=== PATIENT | female | born 1995 | race Caucasian/White ===

== ENCOUNTER 2018-10-19 12:30 | Emergency (ER) | payer MEDICAID ==
[~2018-10-19] VITALS: Ht 152.4 cm; Wt 49.1 kg
[2018-10-19 12:33] VITALS: BP 108/67; PULSE 84; RESP 18; Ht 152.4 cm; Wt 49.1 kg
--- NOTE | 2018-10-19 12:36 | EN ---
Date/Time of Note Date/Time of Note DATE: 10/19/18 TIME: 12:34 ER Progress Note 23-year-old female G1 para 0 approximately 7 months referred by primary doctor for bilateral lower extremity pain and evaluation for Doppler to rule out DVT. Patient describes pain in bilateral thighs with walking. Patient denies shortness of breath, hemoptysis, syncope, swelling. Patient ambulatory and [id number]. Patient has additional complaint of mild lower abdominal suprapubic pain. Patient may return to L&D after medical screening for DVT. Vital signs normal without tachycardia. ISABELLA PATEL MD Oct 19, 2018 12:36
--- NOTE | 2018-10-19 17:19 | ERD ---
ER Documentation Chief Complaint Chief Complaint sent by clin here to r/o DVT on bilateral LE. c/o pain bila LE. 7.5 mos pre HPI History of Present Illness: 23-year-old female from [facility] 34 weeks referred by primary doctor ([facility]) for bilateral lower extremity pain and evaluation for Doppler to rule out DVT. Patient describes pain in bilateral thighs with walking. Patient denies shortness of breath, hemoptysis, syncope, swelling. Patient ambulatory and [id number]-fjbtverkj. Patient initially went through RME and had complained of abdominal pain, upon further clarification patient reports that pain is not present at this time. At home pharmacological/nonpharmacological treatment for symptoms: Denies Denies social concerns; Denies recent foreign travel ROS All systems reviewed and are negative except as per history of present illness. Allergies Allergies: Coded Allergies: No Known Allergy (Unverified , 10/19/18) PMhx/Soc Medical and Surgical Hx: pt denies Medical Hx, pt denies Surgical Hx Hx Alcohol Use: No Hx Substance Use: No Hx Tobacco Use: No Smoking Status: Never smoker Physical Exam Vitals Vital Signs Date Temp Pulse Resp B/P (MAP) Pulse Ox O2 O2 Flow FiO2 Time Delivery Rate 10/19/18 97.8 84 18 108/67 99 12:33 (81) Physical Exam Const: No acute distress, afebrile Head: Atraumatic Eyes: Normal Conjunctiva ENT: Normal External Ears, Nose and Mouth. Neck: Full range of motion. No meningismus. Resp: Clear to auscultation bilaterally Cardio: Regular rate and rhythm, no murmurs Abd: Soft, non tender, non distended. Bowel sounds present. Patient gravid. No guarding, no masses, no rigidity Skin: No petechiae or rashes Back: No midline or flank tenderness Ext: No cyanosis, or edema Neur: Awake and alert x3, speaking in clear sentences, no focal deficits or facial asymmetry Psych: Normal Mood and Affect Results 24 hrs Laboratory Tests Test 10/19/18 13:15 Urine Color YELLOW Urine Clarity SLIGHTLY CLOUDY Urine pH 7.0 Urine Specific [place] 1.012 Urine Ketones TRACE mg/dL Urine Nitrite NEGATIVE mg/dL Urine Bilirubin NEGATIVE mg/dL Urine Urobilinogen NEGATIVE mg/dL Urine Leukocyte Esterase NEGATIVE Lilibeth/ul Urine Microscopic RBC 0 /HPF Urine Microscopic WBC 3 /HPF Urine Squamous Epithelial Cells MODERATE /HPF Urine Bacteria FEW /HPF Urine Hemoglobin NEGATIVE mg/dL Urine Glucose NEGATIVE mg/dL Urine Total Protein NEGATIVE mg/dl Procedures/MDM Call is for this girl ED COURSE: ED course includes a thorough examination and history. The patient was stable throughout ED course. I kept the patient and/or family informed of laboratory and diagnostic imaging results throughout the ED course. LABS: Urinalysis is with trace ketones, few bacteria, 3 WBCs; findings are consistent with urinary tract infection MEDICATIONS GIVEN IN ER: DIAGNOSTIC IMAGING: Read by radiologist. Bilateral lower extremity venous: IMPRESSION: No sonographic evidence for deep venous thrombosis. .Jamal Tsai MD, MD Date Time Electronically viewed and signed by .Jamal Tsai MD, on 10/19/2018 14:30 PROCEDURES: None. MEDICAL DECISION MAKING: Low suspicion for life-threatening medical emergency. Otherwise healthy patient presenting with constellation of symptoms likely representing leg pain related to as characterized by history, physical exam findings. Patient reassessment @ 1435: Results discussed. Patient given the option to go to labor and delivery for further evaluation. Patient hemodynamically stable. No respiratory distress, otherwise relatively well appearing and nontoxic. Di sposition given. Patient educated on diagnoses, prescriptions, follow-up care, return precautions. Strict return precautions given for worsening condition; questions answered discharge. Patient verbalizes understanding of discharge instructions. PRESCRIPTIONS FOR HOME: Acetaminophen DISPOSITION: DISCHARGE At this time, patient is stable for discharge and outpatient management. I have instructed the patient to follow-up with his/her primary care physician in 1-2 days. I have discussed with the patient the possibility of needing to see a specialist for further workup and imaging studies if symptoms persist. I have instructed the patient to promptly return to the ER for any new or worsening symptoms including increased pain, fever, nausea, vomiting, weakness or LOC. The patient and/or family expressed understanding of and agreement with this plan. All questions were answered. Home care instructions were provided. DISCLAIMER: Inadvertent spelling and grammatical errors are likely due to EHR/dictation s oftware use and do not reflect on the overall quality of patient care. Also, please note that the electronic time recorded on this note does not necessarily reflect the actual time of the patient encounter. Departure Diagnosis: Primary Impression: Bilateral leg pain Ruled Out: DVT (deep venous thrombosis) Condition: Stable Patient Instructions: : Your Third Trimester Changes, Adapting to : Third Trimester Referrals: [facility] YOU HAVE RECEIVED A MEDICAL SCREENING EXAM AND THE RESULTS INDICATE THAT YOU DO NOT HAVE A CONDITION THAT REQUIRES URGENT TREATMENT IN THE EMERGENCY DEPARTMENT. FURTHER EVALUATION AND TREATMENT OF YOUR CONDITION CAN WAIT UNTIL YOU ARE SEEN IN YOUR DOCTORS OFFICE WITHIN THE NEXT 1-2 DAYS. IT IS YOUR RESPONSIBILITY TO MAKE AN APPOINTMENT FOR FOLOW-UP CARE. IF YOU HAVE A PRIMARY DOCTOR --you should call your primary doctor and schedule an appointment IF YOU DO NOT HAVE A PRIMARY DOCTOR YOU CAN CALL OUR PHYSICIAN REFERRAL HOTLINE AT IF YOU CAN NOT AFFORD TO SEE A PHYSICIAN YOU CAN CHOSE FROM THE FOLLOWING [facility] [address] [facility]. [facility] [address] [facility]. [facility] [address] [facility] [facility] [address] [facility] [facility] [address] [facility] [facility]. [facility]. [address] [facility]. [facility] YOU HAVE RECEIVED A MEDICAL SCREENING EXAM AND THE RESULTS INDICATE THAT YOU DO NOT HAVE A CONDITION THAT REQUIRES URGENT TREATMENT IN THE EMERGENCY DEPARTMENT. FURTHER EVALUATION AND TREATMENT OF YOUR CONDITION CAN WAIT UNTIL YOU ARE SEEN IN YOUR DOCTORS OFFICE WITHIN THE NEXT 1-2 DAYS. IT IS YOUR RESPONSIBILITY TO MAKE AN APPOINTMENT FOR FOLOW-UP CARE. IF YOU HAVE A PRIMARY DOCTOR --you should call your primary doctor and schedule and appointment IF YOU DO NOT HAVE A PRIMARY DOCTOR YOU CAN CALL OUR PHYSICIAN REFERRAL HOTLINE AT . IF YOU CAN NOT AFFORD TO SEE A PHYSICIAN YOU CAN CHOSE FROM THE FOLLOWING [facility] INSTITUTIONS: [facility] [address] [place] [address] [facility] [address] [place] [address] L[facility] + [facility] [address] [place] [address] Additional Instructions: Google Translate utilizado para la traduccin de las siguientes lneas, por favor, disculpe los errores. Muchas nasreen por permitirnos participar en vargas cuidado. Vargas camacho y seguridad es nuestra principal prioridad en [facility]. Es importante leer todas las instrucciones de nico y la educacin que se proporcionan en vargas paquete de nico. Llame a vargas mdico de atencin primaria MAANA para nii alissa tr los prximos 2 a 4 garcia y lleve toda la informacin y los medicamentos recetados. Llene las recetas y siga exactamente las instrucciones de la etiqueta. --Acetaminofeno etienne medicamento para el dolor y / o fiebre. [place] azael medicamento segn sea necesario para el dolor leve a moderado. Azael medicamento no causar somnolencia. Azael medicamento es seguro tr el embarazo. Si los sntomas empeoran y vargas proveedor no est disponible, regrese inmediatamente al Departamento de Emergencias. ----- Google Translate used for translation of following lines, please excuse errors. Thank you very much for allowing us to participate in your care. Your health and safety is our top priority at [facility]. It is important to read all discharge instructions and education provided in your discharge packet. Call your primary care doctor TOMORROW for an appointment during the next 2-4 days and bring all the information and medications prescribed. Have prescriptions filled and follow precisely the directions on the label. --Acetaminophen as a medication for pain and/or fever. Take this medication as needed for mild to moderate pain. This medication will not cause drowsiness. This medication is safe during . If the symptoms get worse and your provider is unavailable, return to the Emergency Department immediately. LEONCIO ROGERS NP Oct 19, 2018 17:18
== END 2018-10-19 14:57 | disposition home or self-care (01) ==
LOC: FTE 12:30
DX: M79.604 Pain in right leg (principal); M79.605 Pain in left leg
CPT/HCPCS: 81001; 93970; Z7502; 81003

== ENCOUNTER 2018-11-12 13:19 | Inpatient (IN) | payer MEDICAID ==
[~2018-11-12] VITALS: Ht 149.9 cm; Wt 51.4 kg
[~2018-11-12 13:19] MED LIST: DOCU-144 PO; IBUP-1542 PO; PNV11TAB PO
[2018-11-12 13:41] VITALS: BP 108/68; PULSE 86
[2018-11-12 13:48] VITALS: Ht 149.9 cm; Wt 51.4 kg
[2018-11-12] MEDS ORDERED: OXYTOCIN 30 UNITS/LR 500 ML IV PRN ×3 (16:30→23:30)
[2018-11-12] MEDS ORDERED: CARBOPROST 250 MCG INJ IM PRN ×3 (16:30→23:30)
[2018-11-12] MEDS ORDERED: METHYLERGONOVINE 0.2 MG INJ IM PRN ×3 (16:30→23:30)
[2018-11-12] MEDS ORDERED: MISOPROSTOL 200 MCG TAB PR PRN ×3 (16:30→23:30)
[2018-11-12] MEDS ORDERED: CEFAZOLIN 2 GM/50 ML (PMX) 50 ML IVPB SCH (16:30)
[2018-11-12] MEDS: LACTATED RINGER'S 1,000 ML IV SCH ×2 (16:59→17:54)
[2018-11-12] MEDS ORDERED: AMPICILLIN 2 GM/NS (PMX) 100 ML IVPB ONE (17:20)
--- NOTE | 2018-11-12 17:21 | PREAC ---
Date/Time of Note Date/Time of Note DATE: 11/12/18 TIME: 17:20 Anesthesia Eval and Record Evaluation Time Pre-Procedure Interview DATE: 11/12/18 TIME: 17:20 Age 23 Sex female NPO: 8 hrs Preoperative diagnosis iup at 39 weeks Planned procedure repeat c section Past Medical History Past Medical History: None Surgery & Anesthesia Issues No known issue Meds Anticoagulation: No Beta Chioma within 24 hr: No Reason Beta Chioma not given: Pt. not on B-Chioma Reported Medications [id number] ( 19) 1 Each Tablet, 1 TAB PO DAILY, TAB 11/12/18 Current Medications Lactated Ringer's 1,000 ml @ 125 mls/hr Q8H IV Last administered on 11/12/18at 16:59; Admin Dose 125 MLS/HR; Start 11/12/18 at 16:17 Cefazolin Sodium/ Dextrose 50 ml @ 100 mls/hr ONCE IVPB ; Start 11/12/18 at 16:30 Oxytocin/Lactated Ringer's 500 ml @ 0 mls/hr ONCE PRN IV .VAGINAL BLEEDING; Start 11/12/18 at 16:30 Methylergonovine Maleate (Methergine) 0.2 mg ONCE PRN IM .VAGINAL BLEEDING; Start 11/12/18 at 16:30 Carboprost Tromethamine (Hemabate) 250 mcg ONCE PRN IM .VAGINAL BLEEDING; Start 11/12/18 at 16:30 Misoprostol (Cytotec) 1,000 mcg ONCE PRN PA .VAGINAL BLEEDING; Start 11/12/18 at 16:30 Meds reviewed: Yes Allergies Coded Allergies: No Known Allergy (Unverified , 11/12/18) Allergies Reviewed: Yes Labs/Studies Labs Reviewed: Reviewed by anesthesiologist Result Diagram: 11/12/18 1627 Laboratory Tests 11/12/18 16:27 test: Positive Pre-procedure Exam Last vitals Vital Signs Date Temp Pulse Resp B/P (MAP) Pulse Ox O2 O2 Flow FiO2 Time Delivery Rate 11/12/18 98.8 86 108/68 Room Air 13:41 (81) Airway: Adequate mouth opening, Adequate thyromental dist Mallampati: Mallampati II Teeth: Normal Lung: Normal Heart: Normal ASA Physical Status ASA physical status: 2 Emergency: None Planned Anesthetic Neuraxial: Spinal Planned Pain Management Sub-arachniod narcotics Pre-operative Attestations Prior to commencing anesthesia and surgery, the patient was re-evaluated, there was verification of: *The patient's identity *The results of appropriate recent lab work and preoperative vital signs *The above evaluation not changing prior to induction *Anesthetic plan, risk benefits, alternative and complications discussed with patient/family; questions answered; patient/family understands, accepts and wishes to proceed. NITIN HOFF Nov 12, 2018 17:21
[2018-11-12] MEDS ORDERED: ZOLPIDEM 5 MG TAB PO PRN (19:30)
[2018-11-12] MEDS ORDERED: ONDANSETRON 4 MG INJ IV PRN (19:30)
[2018-11-12] MEDS ORDERED: NALOXONE (0.4 MG/ML) INJ IV PRN (19:30)
[2018-11-12] MEDS ORDERED: KETOROLAC 30 MG INJ IV PRN (19:30)
[2018-11-12] MEDS ORDERED: HYDROmorphONE 0.5 MG/0.5 ML SYG IV PRN ×2 (19:30)
[2018-11-12] MEDS ORDERED: DIPHENHYDRAMINE 50 MG INJ IV PRN (19:30)
[2018-11-12] MEDS ORDERED: OXYTOCIN 30 UNITS/LR 500 ML IV SCH ×2 (19:32→23:02)
--- NOTE | 2018-11-12 19:32 | HP ---
Date/Time of Note Date/Time of Note DATE: 11/12/18 TIME: 19:27 OB - History Hx of Present Chief Complaint: abdominal pain : 3 Para: 2 Care: Good Care Obstetrical Complications: None Medical Complications: None Past Family/Social History * Past Medical, Surgical, Family and Obstetric Histories reviewed from chart. OB Admission Exam Vital Signs Vital Signs Vital Signs Date Temp Pulse Resp B/P (MAP) Pulse Ox O2 O2 Flow FiO2 Time Delivery Rate 11/12/18 98.8 86 108/68 Room Air 13:41 (81) Physical Exam HEENT: WNL Heart: Rhythm Normal Abdomen: WNL Extremities: Normal Cervical Dilatation: 1cm Effacement: 75% Station: -1 Membranes: Intact Heart Rate: 140's Accelerations: Accelerations Present Contractions on Admission: 6-10 Minutes Apart Intensity: Moderate Last 72 hours Lab Results CBC & BMP 11/12/18 16:27 OB Assessment/Plan Reason for admission: active labor, other (IUP 38 weeks in active labor , h/o CS X 2, desire permanent sterillisation) Plan: Other (pre op for repeat cesarian section with bilateral tubal ligation, explaine the patient risk and benefits of procedure, including risk of infection , bleding risk of injury internal organd and tissues as well as benefits of procedure. patient agree with the plan, consent is obtained,patint signed sterillzation cosnent and desire permanent sterillization, will pre op for repeat cesaria section with bilateral tubal ligation ) ISABELLA JUNG MD Nov 12, 2018 19:32
[2018-11-12] MEDS ORDERED: morphine SULFATE/PF (10 MG/10 ML) INJ ONE (19:35)
[2018-11-12] MEDS ORDERED: ONDANSETRON 4 MG INJ ONE (19:36)
[2018-11-12] MEDS ORDERED: DEXAMETHASONE 4 MG/ML 1 ML INJ ONE (19:36)
[2018-11-12] MEDS ORDERED: OXYTOCIN 30 UNITS/LR 500 ML IV ONE (19:36)
[2018-11-12] MEDS ORDERED: NACL 0.9% 3 ML SYG IV SCH ×2 (20:00→23:30)
[2018-11-12] MEDS: OXYTOCIN 30 UNITS/LR 500 ML IV SCH ×2 (20:45→22:00)
--- NOTE | 2018-11-12 20:45 | OPR ---
Operative Report Planned Procedure Free Text/Dictation IUP 38 weeks h/o CS X 2 desire sterillisation, in labor Procedure date Nov 12, 2018 Procedure(s) Rpepeat LTCS with bilateral tubal ligation Performed by Isabella Jung M.D. Coal Carrier: AMAYA GONZALEZ MD Anesthesiologist: NITIN HOFF Pre-procedure diagnosis IUP 38 weeks h/o CS X 2 desire sterillisation, in labor [id number] Anesthesia Type: [id number] spinal Post-Procedure Post-procedure diagnosis IUP 38 weeks h/o CS X 2 desire sterillisation, in labor Findings Live Baby , vertex presentation Estimated Blood Loss: 300 - 400 mls Specimen(s) Fallope tubes segments Grafts/Implant(s) none Complication(s) none Pt Condition post procedure: stable Disposition: PACU Procedure Description Patient was taken to operating room, spinal anesthesia obtained. Pleased in dorsal supine position, prepped and drapped in sterille fashion. Midline insicion was made with excision of previous scar, peritoneum was entred. Bladder blade was pleased. Lower uterine segment insiced in transverese fashion with scalpel and advanced laterally with bandage scissors. heand delivered atraumatically. Cord clump and cut, was hand of waithing RN for evaluation, placenta delivered manually. Uterus exteriorised, insision repaired with 2 layers of sutures, no bleeding Left tube grasped with pallavi clump, performed pleacement 2 nodes on the tubes, free from fimriated end. Excsicon of the node and cauterization of giuliana margins. Same method used to perform tubal ligation on opposite side. No bleeding, speciments send to pathology. Uterus return to the abdomen, labs, needles and instruments counted correct X 2. Fascia closed with maxon on loop suture. Skin was clsoed with 3-0 Monocryl. no bleeding. IV antibiotic was given, sterille dressing. Final count correct. Folley clear urine at the end of procedure. Patient was taking to recovery room in stable condition. ISABELLA JUNG MD Nov 12, 2018 20:45
[2018-11-12 23:30] VITALS: BP 98/66; PULSE 62; RESP 18
[2018-11-13] MEDS: OXYTOCIN 30 UNITS/LR 500 ML IV SCH ×5 (02:00→18:00)
[2018-11-13 03:55] VITALS: BP 99/62; PULSE 77; RESP 18
[2018-11-13 08:00] VITALS: BP 97/54; PULSE 72; RESP 16
[2018-11-13 11:57] VITALS: BP 103/56; PULSE 83; RESP 17
[2018-11-13] MEDS: LACTATED RINGER'S 1,000 ML IV SCH ×2 (16:01→16:17)
[2018-11-13 16:04] VITALS: BP 103/60; PULSE 84; RESP 16
--- NOTE | 2018-11-13 20:07 | QN ---
Documentation Comment Postop day #1 Status post repeat Patient stable and afebrile Positive flatus and voiding and tolerating regular diet and ambulating Vital signs stable VS - Last 72 Hours, by Label Date Temp Pulse Resp B/P (MAP) Pulse Ox O2 O2 Flow FiO2 Time Delivery Rate 11/13/18 98.8 84 16 103/60 96 16:04 (74) 11/13/18 99.1 83 17 103/56 94 Room Air 11:57 (72) 11/13/18 99.0 72 16 97/54 (68) 95 08:00 11/13/18 99.0 77 18 99/62 (74) 96 High Flow 03:55 11/12/18 97.7 62 18 98/66 (77) 99 Room Air 23:30 11/12/18 98.8 86 108/68 Room Air 13:41 (81) Hematology - 72 Hrs Test 11/12/18 16:27 11/13/18 07:10 Hematocrit 36.0 % (37.0-47.0) L 31.4 % (37.0-47.0) L Hemoglobin 11.9 g/dl (12.0-16.0) L 10.5 g/dl (12.0-16.0) L Mean Corpuscular 29.9 pg (29.0-33.0) 30.2 pg (29.0-33.0) Hemoglobin Mean Corpuscular 33.1 g/dl (32.0-37.0) 33.4 g/dl (32.0-37.0) Hemoglobin Concent Mean Corpuscular Volume 90.5 fl (82.0-101.0) 90.2 fl (82.0-101.0) Mean Platelet Volume 10.9 fl (7.4-10.4) H 11.2 fl (7.4-10.4) H Platelet Count 264 10^3/UL (140-415) 257 10^3/UL (140-415) Red Blood Count 3.98 10^6/ul (4.20-5.40) 3.48 10^6/ul (4.20-5.40) L L Red Cell Distribution 14.6 % (11.5-14.5) H 14.4 % (11.5-14.5) Width White Blood Count 16.2 10^3/ul (4.8-10.8) 25.4 10^3/ul (4.8-10.8) H #H Monocytes # (Manual) 0.5 10^3/ul (0.3-0.9) Abdomen soft, fundus firm Incision clean,dry,intact Extremities nontender Assessment and plan Patient stable and doing well Encouraged to ambulate Continue with routine postop care LUIZ PAUL MD Nov 13, 2018 20:07
[2018-11-13 20:30] VITALS: BP 93/54; PULSE 81; RESP 17
[2018-11-14] MEDS: LACTATED RINGER'S 1,000 ML IV SCH (00:17)
[2018-11-14 03:56] VITALS: BP 93/52; PULSE 80; RESP 17
[2018-11-14] MEDS: HYDROCODONE/APAP (5/325) TAB PO PRN ×2 (05:07→16:26)
[2018-11-14 08:38] VITALS: BP 95/60; PULSE 75; RESP 16
--- NOTE | 2018-11-14 13:30 | QN ---
Documentation Comment POD#2 is stable afebrile tolerates diet No VB +Flatus +voids VS stable Gen NAD Abd soft NT ND Incision intact Genitalia No blood at Perineum --->Discharge Home tomorrow --->precautions discussed JORJE MAK M.D. Nov 14, 2018 13:30
--- NOTE | 2018-11-14 13:31 | PAC ---
Date/Time of Note Date/Time of Note DATE: 11/14/18 TIME: 13:31 Post-Anesthesia Notes Post-Anesthesia Note Last documented vital signs Vital Signs Date Temp Pulse Resp B/P (MAP) Pulse Ox O2 O2 Flow FiO2 Time Delivery Rate 11/14/18 98.1 75 16 95/60 (72) Room Air 08:38 11/13/18 97 20:30 Activity: WNL Respiratory function: WNL Cardiovascular function: WNL Mental status: Baseline Pain reasonably controlled: Yes Hydration appropriate: Yes Nausea/Vomiting absent: Yes NITIN HOFF Nov 14, 2018 13:31
[2018-11-14 15:40] VITALS: BP 90/53; PULSE 76; RESP 16
[2018-11-14] MEDS ORDERED: HYDROCODONE/APAP (5/325) TAB PO PRN ×2 (19:25)
[2018-11-14 19:45] VITALS: BP 90/57; PULSE 82; RESP 20
[2018-11-15 04:13] VITALS: BP 94/63; PULSE 79; RESP 20
[2018-11-15] MEDS: HYDROCODONE/APAP (5/325) TAB PO PRN (04:35)
[2018-11-15 08:00] VITALS: BP 90/50; PULSE 76; RESP 18
--- NOTE | 2018-11-15 10:27 | DS ---
Date/Time of Note Date/Time of Note DATE: 11/15/18 TIME: 10:24 Obstetrical Discharge Record Final Diagnosis Final Diagnosis: Term delivered Other Final Diagnosis Hospital day: 4 DONNA 11/24/18 Rejected Items Clerk ID [id number] labs: Blood type: A+ Rubella: immune HepBSAg: nonreactive RPR: NR HIV: negative GC/CT: negative GBS: positive 1. Repeat - admitted on 11/12/2018 for labor with a history of section. She delivered via on 11/12/2018 at 38 weeks. Hospital course was complicated by acute blood loss anemia. No apparent distress. Fundus firm and below the level of the umbilicus. Cardiovascular regular rate and rhythm. Pulmonary clear to auscultation bilaterally. Incision clean dry intact. Extremities nontender to palpation. Tolerated a regular diet prior to discharge. Pain well controlled. Lochia within normal limits. Is feeding. Undecided on form of contraception. 2. Acute blood loss anemiavitals stable at 90/50. H/H 9.8/30.9. Asymptomatic prior to discharge. Orthostatics prior to discharge. 3. Undesired fertility-underwent a BTL. Vaginal Delivery Obstetrical Delivery: Bilateral Tubal Ligation Section Section: Repeat Condition on Discharge Physical Assessment Patient Condition: Stable MILESTONE,LESLIE LOPES Nov 15, 2018 10:27
--- NOTE | 2018-11-16 16:40 | DELSUM ---
Delivery Summary A-C Datetime Report Generated by CPN: 11/16/2018 16:40 DELIVERY PERSONNEL Avionics Repair Technician: Radha Ling MATERNAL INFORMATION Delivery Anesthesia: Spinal Medications in Delivery: see anesthesia Delivery QBL (ml): 300 Placenta Cultured: No Maternal Complications: Other Other Maternal Complications: previous section in labor LABOR SUMMARY EDC: 11/24/2018 00:00 No. Babies in Womb: 1 Attempted: No Labor Anesthesia: None LABOR INFORMATION Reason for Induction: Not Applicable Onset of Labor: 11/12/2018 04:00 Group B Beta Strep: Positive Antibiotics # of Doses: 1 Antibiotics Time of Last Dose: 11/12/2018 17:30 Steroids Given: None Reason Steroids Not Administered: Not Applicable MEMBRANES Membranes Rupture Method: Artificial Rupture of Membranes: 11/12/2018 19:50 Length of Rupture (hr): 0.02 Amniotic Fluid Color: Clear Amniotic Fluid Amount: Small Amniotic Fluid Odor: None STAGES OF LABOR Stage 3 hr: 0 Stage 3 min: 1 Total Time in Labor hr: 15 Total Time in Labor min: 52 CSECTION DELIVERY Primary Indication: Repeat Elective Secondary Indication: Other Other Secondary Indication: tubal ligation CSection Urgency: Elective CSection Incidence: Repeat Labor: Labor Elective: Nonelective CSection Incision- Other: MIDLINE SKIN INCISION TRANSVERSE Sterilization Procedure: Farnaz BABY A INFORMATION Delivery Date/Time: 11/12/2018 19:51 Method of Delivery: Born in Route : No : N/A Forceps: N/A Vacuum Extraction: N/A Shoulder Dystocia : N/A SHOULDER DYSTOCIA BABY A Delivery Date/Time: 11/12/2018 19:51 PRESENTATION/POSITION BABY A Presentation: Cephalic Cephalic Presentation: Vertex Vertex Position: Left Occipital Posterior Breech Presentation: N/A PLACENTA INFORMATION BABY A Placenta Delivery Time : 11/12/2018 19:52 Placenta Method of Delivery: Manual Removal Placenta Status: Delivered SCORES BABY A Heart Rate 1 min: >100 bpm Resp Effort 1 min: Good Cry Reflex Irritability 1 min: Cough/Sneeze/Pulls Away Muscle Tone 1 min: Active Motion Color 1 min: Blue/Pale Resuscitation Effort 1 min: Tactile Stimulation SCORE 1 MIN: 8 Heart Rate 5 min: >100 bpm Resp Effort 5 min: Good Cry Reflex Irritability 5 min: Cough/Sneeze/Pulls Away Muscle Tone 5 min: Active Motion Color 5 min: Body [place], Extremit Blue Resuscitation Effort 5 min: Tactile Stimulation SCORE 5 MIN: 9 INFANT INFORMATION BABY A Gestational Age at Delivery: 38.2 Gestational Status: Early Term- 37- 38.6 Weeks Outcome : Liveborn, with signs of life Condition : Stable Infant Sex: Male IDENTIFICATION/MEDS BABY A ID Band Number: [id number] ID Band Location: Right Leg; Left Arm Sensor Applied: Yes Sensor Number: [id number] Sensor Location : Cord Clamp Vitamin K Given : Not Given Erythromycin Given: Not Given WEIGHT/LENGTH BABY A Infant Birthweight (gm): 3435 Infant Weight (lb): 7 Weight (oz): 9 Infant Length (in): 19.25 Infant Length (cm): 48.90 CORD INFORMATION BABY A No. Cord Vessels: 3 Nuchal Cord : N/A Cord Blood Taken: Yes Suction: Mouth; Nose ASSESSMENT BABY A Infant Complications: None Physical Findings at Delivery: Within Normal Limits Physical Findings- Other: VOID X1 Infant Respirations: Appears Normal Tank Erector/ALS Called : No Infant Care By: JANEY Mckinney RN Transferred To: Remains with Mother
== END 2018-11-15 16:40 | disposition home or self-care (01) | DRG 784 ==
LOC: OBT 13:19 → L-D 13:19 → OBT 14:10 → L-D 14:10 → PP1 23:06
PROVIDERS: ADMIT Obstetrics & Gynecology; ATTEND Obstetrics & Gynecology
PROC: 0UB70ZZ Excision of Bilateral Fallopian Tubes, Open Approach (ICD-10-PCS; 2018-11-12)
PROC: 10D00Z1 Extraction of Products of Conception, Low, Open Approach (ICD-10-PCS; principal; 2018-11-12 18:45)
DX: O99.820 Streptococcus B carrier state complicating pregnancy (principal); O34.211 Maternal care for low transverse scar from previous cesarean delivery; D62 Acute posthemorrhagic anemia; O99.02 Anemia complicating childbirth; Z3A.38 38 weeks gestation of pregnancy; Z37.0 Single live birth; Z30.2 Encounter for sterilization
CPT/HCPCS: 76818; 81001; 85025; 85610; 85730; 86592; 86850; 86900; 86901; 87086; 87340; 88302; 99464; G0463; J0290; J0690; J1100; J1200; J1885; J2274; J2405; J2590; J7120